=== PATIENT | female | born 1955 | race Hispanic/Latino ===

== ENCOUNTER 2020-05-18 13:51 | Emergency (ER) | payer BC, MEDICARE ==
[~2020-05-18] VITALS: Ht 149.9 cm; Wt 54.4 kg
[2020-05-18 15:14] LABS: BASOPHILS % 0.1 % (0.0-1.0); EOSINOPHILS % 0.4 % (0.0-6.0); HEMATOCRIT 32.3 % (34.2-44.1); HEMOGLOBIN 11.1 g/dL (12.0-16.0); LYMPHOCYTES # (AUTO) 1.3 (1.0-3.2); LYMPHOCYTES % 18.7 % (18.0-39.1); MEAN CORPUSCULAR HEMOGLOBIN 30.7 pg (28-32); MEAN CORPUSCULAR HGB CONC 34.4 g/dL (31-35); MEAN CORPUSCULAR VOLUME 89.5 fL (81-99); MONOCYTES # (AUTO) 0.5 (0.2-0.8); MONOCYTES % 7.2 % (4.4-11.3); NEUTROPHILS % 73.2 % (38.7-80.0); PLATELET COUNT 375 x10e3/uL (140-360); RED BLOOD COUNT 3.61 x10e6/uL (3.6-5.1)
[2020-05-18 15:33] LABS: ALANINE AMINOTRANSFERASE 38 IU/L (0-55); ALBUMIN 2.9 g/dL (3.5-5.0); ALBUMIN/GLOBULIN RATIO 0.7 (0.8-2.0); ALKALINE PHOSPHATASE 103 IU/L (40-150); BLOOD UREA NITROGEN 11 mg/dL (7-26); BUN/CREATININE RATIO 21 (6-25); CALCIUM 8.2 mg/dL (8.4-10.2); CARBON DIOXIDE 23 mmol/L (22-29); CHLORIDE 108 mmol/L (98-107); CREATININE, SERUM 0.52 mg/dL (0.57-1.11); EST GLOMERULAR FILTRATION RATE > 60 ML/MIN (60-); GLUCOSE 100 mg/dL (74-118); SODIUM 143 mmol/L (136-145)
[2020-05-18 17:52] VITALS: BP 142/83
[2020-05-19] MEDS ORDERED: POTASSIUM CHLORIDE 20 MEQ TAB CR PO SCH (09:00)
== END 2020-05-18 17:55 | disposition home or self-care (01) ==
LOC: ER 14:31
DX: U07.1 COVID-19 (principal); R50.9 Fever, unspecified; R11.0 Nausea; I10 Essential (primary) hypertension; E78.5 Hyperlipidemia, unspecified
CPT/HCPCS: 36415; 80053; 85025; 99284

== ENCOUNTER 2020-11-19 19:45 | Emergency (ER) | payer OTHER, BC, MEDICARE ==
[~2020-11-19] VITALS: Ht 149.9 cm; Wt 56.7 kg
[2020-11-19 21:37] VITALS: BP 156/75
== END 2020-11-19 21:44 | disposition home or self-care (01) ==
LOC: ER 20:17
DX: S00.83XA Contusion of other part of head, initial encounter (principal); M25.522 Pain in left elbow; W01.0XXA Fall on same level from slipping, tripping and stumbling without subsequent striking against object, initial encounter; Y93.01 Activity, walking, marching and hiking; Y92.008 Other place in unspecified non-institutional (private) residence as the place of occurrence of the external cause; I10 Essential (primary) hypertension; E78.5 Hyperlipidemia, unspecified
CPT/HCPCS: 70450; 72125; 99284

== ENCOUNTER 2021-01-16 16:28 | Emergency (ER) | payer BC, MEDICARE, OTHER ==
[~2021-01-16] VITALS: Ht 149.9 cm; Wt 56.7 kg
[2021-01-16] MEDS ORDERED: HYDROCODONE/APAP 10MG-325MG TAB PO ONE (18:00)
[2021-01-16] MEDS ORDERED: HYDROCODON-ACE1 EAC9 PO (18:02)
[2021-01-16 18:30] VITALS: BP 135/82
== END 2021-01-16 18:33 | disposition home or self-care (01) ==
LOC: ER 16:42
DX: S42.492A Other displaced fracture of lower end of left humerus, initial encounter for closed fracture (principal); M25.422 Effusion, left elbow; S00.83XA Contusion of other part of head, initial encounter; S80.01XA Contusion of right knee, initial encounter; W01.0XXA Fall on same level from slipping, tripping and stumbling without subsequent striking against object, initial encounter; Y93.01 Activity, walking, marching and hiking; I10 Essential (primary) hypertension; E78.5 Hyperlipidemia, unspecified
CPT/HCPCS: 70450; 72125; 99284

== ENCOUNTER → 2021-01-25 | Day surgery (SDC) | payer BC, MEDICARE ==
[2021-01-24 13:00] LABS: BASOPHILS % 0.3 % (0.0-1.0); EOSINOPHILS # (AUTO) 0.2 (0.0-0.4); EOSINOPHILS % 2.8 % (0.0-6.0); HEMATOCRIT 39.8 % (34.2-44.1); HEMOGLOBIN 13.3 g/dL (12.0-16.0); MEAN CORPUSCULAR HEMOGLOBIN 30.8 pg (28-32); MEAN CORPUSCULAR HGB CONC 33.4 g/dL (31-35); MEAN CORPUSCULAR VOLUME 92.1 fL (81-99); MONOCYTES # (AUTO) 0.6 (0.2-0.8); MONOCYTES % 7.9 % (4.4-11.3); NEUTROPHILS # (AUTO) 4.5 (2.1-6.9); NEUTROPHILS % 61.7 % (38.7-80.0); PLATELET COUNT 277 x10e3/uL (140-360); RED BLOOD COUNT 4.32 x10e6/uL (3.6-5.1); RED CELL DISTRIBUTION WIDTH 12.5 % (11.7-14.4)
[2021-01-24 13:16] LABS: ANION GAP 13.2 mmol/L (8-16); CALCIUM 9.1 mg/dL (8.4-10.2); CREATININE, SERUM 0.53 mg/dL (0.57-1.11); POTASSIUM 4.2 mmol/L (3.5-5.1)
[~2021-01-25] MED LIST: ALENDRONATE SOD70 MG PO; ATORVASTATIN CA10 MG PO; BUPIVACAINE HCL 0.5% 10ML MPF VIAL INJ ONE; DEXAMETHASONE SOD PHOS INJ 4 MG/ML VIAL ONE; FENTANYL CITRATE/PF 100MCG/2 ML INJ ONE; HYDROCHLOROTHIA25 MG PO; HYDROCODON-ACE1 EAC9 PO; LIDOCAINE 1% W/EPINEPHRINE 20 ML VIAL ONE; LIDOCAINE HCL 2% JELLY 5 ML TUBE ONE; LIDOCAINE HCL 2% LOCAL INJ 5 ML SDV VIAL INJ ONE; MIDAZOLAM HCL 2 MG/2 ML VIAL ONE; ONDANSETRON HCL INJ 2MG/ML 2ML 2 MG/ML VIAL ONE; ONDANSETRON ODT8 MG PO; POVIDONE IODINE 0.05% 0.05 % ML PO ONE; PROPOFOL IV EMULSION 10 MG/ML 20 ML VIAL ONE; ROPIVACAINE 0.5% 5 MG/ML 30 ML SDV ONE; SEVOFLURANE INHAL SOLN 250 ML PEN BTL ONE; SODIUM CHLORIDE 0.9% 50ML 100 ML ONE
[2021-01-25 14:55] VITALS: BP 152/74
== END | disposition home or self-care (01) ==
LOC: OR 08:45
PROVIDERS: ATTEND Orthopaedic Surgery
DX: S42.452A Displaced fracture of lateral condyle of left humerus, initial encounter for closed fracture (principal); I10 Essential (primary) hypertension; E78.5 Hyperlipidemia, unspecified; K21.9 Gastro-esophageal reflux disease without esophagitis; Z01.810 Encounter for preprocedural cardiovascular examination; Z86.16 Personal history of COVID-19; Z01.812 Encounter for preprocedural laboratory examination; Z01.818 Encounter for other preprocedural examination; Z20.822 Contact with and (suspected) exposure to COVID-19
CPT/HCPCS: 24579; 36415; 71046; 76000; 80048; 85025; 93005; J0690; J1100; J2001 ×2; J2250; J2405; J2704; J2795; J3010; U0002

== ENCOUNTER → 2021-02-15 | Outpatient (RCR) | payer BC, MEDICARE ==
[~2021-02-15] MED LIST changes: -BUPIVACAINE HCL 0.5% 10ML MPF VIAL INJ ONE; -DEXAMETHASONE SOD PHOS INJ 4 MG/ML VIAL ONE; -FENTANYL CITRATE/PF 100MCG/2 ML INJ ONE; -LIDOCAINE 1% W/EPINEPHRINE 20 ML VIAL ONE; -LIDOCAINE HCL 2% JELLY 5 ML TUBE ONE; -LIDOCAINE HCL 2% LOCAL INJ 5 ML SDV VIAL INJ ONE; -MIDAZOLAM HCL 2 MG/2 ML VIAL ONE; -ONDANSETRON HCL INJ 2MG/ML 2ML 2 MG/ML VIAL ONE; -POVIDONE IODINE 0.05% 0.05 % ML PO ONE; -PROPOFOL IV EMULSION 10 MG/ML 20 ML VIAL ONE; -ROPIVACAINE 0.5% 5 MG/ML 30 ML SDV ONE; -SEVOFLURANE INHAL SOLN 250 ML PEN BTL ONE; -SODIUM CHLORIDE 0.9% 50ML 100 ML ONE
== END ==
LOC: OT 02-09 12:56
PROVIDERS: ATTEND Orthopaedic Surgery
DX: M77.02 Medial epicondylitis, left elbow (principal)

== ENCOUNTER → 2021-03-17 | Outpatient (RCR) | payer BC, MEDICARE | LOC: OT 02-23 10:59 | PROVIDERS: ATTEND Orthopaedic Surgery | DX: S42.452A Displaced fracture of lateral condyle of left humerus, initial encounter for closed fracture (principal); M25.522 Pain in left elbow; M25.622 Stiffness of left elbow, not elsewhere classified; R53.1 Weakness ==

== ENCOUNTER 2021-04-14 11:51 | Outpatient (RCR) | payer BC, MEDICARE | END 2021-04-17 | LOC: OT 11:51 | PROVIDERS: ATTEND Orthopaedic Surgery | DX: M25.822 Other specified joint disorders, left elbow (principal); M25.622 Stiffness of left elbow, not elsewhere classified ==

== ENCOUNTER 2021-05-16 11:00 | Outpatient (RCR) | payer BC, MEDICARE | END 2021-05-17 | LOC: OT 11:00 | PROVIDERS: ATTEND Orthopaedic Surgery | DX: S42.452A Displaced fracture of lateral condyle of left humerus, initial encounter for closed fracture (principal) ==

== ENCOUNTER 2021-06-06 11:00 | Outpatient (RCR) | payer BC, MEDICARE | END 2021-06-17 | LOC: OT 11:00 | PROVIDERS: ATTEND Orthopaedic Surgery | DX: S62.132A Displaced fracture of capitate [os magnum] bone, left wrist, initial encounter for closed fracture (principal) ==